=== PATIENT | male | born 1945 | race Caucasian/White ===

== ENCOUNTER 2023-09-08 10:33 | Inpatient (IN) | payer MEDICARE, OTHER ==
[~2023-09-08] VITALS: Ht 172.7 cm; Wt 106.1 kg
[2023-09-08 11:18] LABS: BASOPHILS % (AUTO) 0.4 % (0.0-2.0); EOSINOPHILS % (AUTO) 0.3 % (0.0-7.0); HEMOGLOBIN 13.3 g/dL (12.5-16.3); LYMPHOCYTES # (AUTO) 0.8 K/uL (0.8-4.8); LYMPHOCYTES % (AUTO) 8.9 % (20.5-51.5); MEAN CORPUSCULAR HEMOGLOBIN 31.6 uug (23.8-33.4); MEAN CORPUSCULAR HGB CONC 35 g/dL (32.5-36.3); MEAN CORPUSCULAR VOLUME 90.2 fL (73.0-96.2); MONOCYTES # (AUTO) 0.3 K/uL (0.1-1.30); MONOCYTES % (AUTO) 3.6 % (0.0-11.0); NEUTROPHILS # (AUTO) 7.6 K/uL (1.8-8.9); NEUTROPHILS % (AUTO) 86.8 % (38.5-71.5); PLATELET COUNT (AUTO) 81 K/uL (152-348); RED BLOOD CELL COUNT(AUTO) 4.21 MIL/uL (4.06-5.63); WHITE BLOOD COUNT (AUTO) 8.8 K/uL (3.6-10.2)
[2023-09-08 11:26] LABS: CALCIUM 8.3 mg/dL (8.5-10.1); CARBON DIOXIDE 28 mmol/L (21-32); CHLORIDE 98 mmol/L (98-107); CREATININE 1.1 mg/dL (0.6-1.3); GLUCOSE 232 mg/dL (74-106); POTASSIUM 3.8 mmol/L (3.5-5.1); SODIUM SERUM 133 mmol/L (136-145); UREA NITROGEN, BLOOD 33 mg/dL (7-18)
[2023-09-08 11:32] LABS: *BILIRUBIN,URIN NEGATIVE (NEGATIVE); *BLOOD, URINE NEGATIVE (NEGATIVE); *CLARITY,URINE CLEAR (CLEAR); *COLOR,URINE YELLOW (YELLOW); *KETONES,URINE NEGATIVE (NEGATIVE); *PROTEIN,URINE NEGATIVE (NEGATIVE); LEUKOCYTE ESTERASE ,URINE NEGATIVE (NEGATIVE); NITRITE, URINE NEGATIVE (NEGATIVE); UGLUCOSE TRACE (NEGATIVE)
[2023-09-08] MEDS ORDERED: OMEP20TA5 PO (11:52)
[2023-09-08] MEDS ORDERED: DONE10TA44 PO (11:52)
[2023-09-08] MEDS ORDERED: CARB-35 PO (11:52)
[2023-09-08] MEDS ORDERED: FLEC100T2 PO (11:52)
[2023-09-08] MEDS ORDERED: ACET325T53 PO (11:52)
[2023-09-08] MEDS ORDERED: FINA5TAB3 PO (11:52)
[2023-09-08] MEDS ORDERED: ASCO500C18 PO (11:52)
[2023-09-08] MEDS ORDERED: ATOR20TA PO (11:52)
[2023-09-08] MEDS ORDERED: HYDR-3980 PO (11:52)
[2023-09-08] MEDS ORDERED: NA P133E RC (11:52)
[2023-09-08] MEDS ORDERED: MAGN400O6 PO (11:52)
[2023-09-08] MEDS ORDERED: BISA10SU61 RC (11:52)
[2023-09-08] MEDS ORDERED: ALBU0.63 NEB (11:52)
[2023-09-08] MEDS ORDERED: CITA20TA16 PO (11:52)
[2023-09-08] MEDS ORDERED: FERR-56 PO (11:52)
[2023-09-08] MEDS ORDERED: METO-356 PO (11:52)
[2023-09-08] MEDS ORDERED: HYDR12.55 PO (11:52)
[2023-09-08] MEDS ORDERED: MEMA10TA PO (11:52)
[2023-09-08] MEDS ORDERED: CHOL500062 PO (11:52)
[2023-09-08 11:57] LABS: ALANINE AMINOTRANSFERASE 17 U/L (16-63); ALBUMIN 3.1 g/dL (3.4-5.0); ALKALINE PHOSPHATASE 79 U/L (50-136); ASPARTATE AMINOTRANSFERASE 7 U/L (15-37); BILIRUBIN,DIRECT 0.2 mg/dL (0.0-0.2); BILIRUBIN,TOTAL 0.9 mg/dL (0.2-1.0); TOTAL PROTEIN, SERUM 6.4 g/dL (6.4-8.2)
[2023-09-08 12:11] LABS: SQUAMOUS EPITHELIAL CELL,UR FEW /HPF (NONE SEEN); WBC,URINE NONE SEEN /HPF (0-3)
[2023-09-08] MEDS: CYANOCOBALAMIN 1000 MCG/ML VIAL IM ONE (12:30)
[2023-09-08] MEDS ORDERED: CYANOCOBALAMIN 1000 MCG/ML VIAL ONE (12:30)
[2023-09-08] MEDS ORDERED: MAG HYDROX/AL HYDROX/SIMETH 30 ML LIQUID UDC PO PRN (16:30)
[2023-09-08] MEDS ORDERED: MAGNESIUM HYDROXIDE 30 ML LIQUID UDC PO PRN ×2 (16:30→18:00)
[2023-09-08] MEDS ORDERED: FLEET ENEMA 133 ML BOTTLE RC PRN (18:00)
[2023-09-08] MEDS ORDERED: ACETAMINOPHEN 325 MG TABLET-SA PATIENTS-PAIN ONLY PO PRN (18:00)
[2023-09-08] MEDS ORDERED: BISACODYL 10 MG SUPP.RECT RC PRN (18:00)
[2023-09-08 18:54] VITALS: BP 156/77; TEMP 97.4; O2SAT 97
[2023-09-08 20:02] VITALS: BP 140/78; TEMP 98.1; O2SAT 96
[2023-09-08] MEDS: LORAZEPAM 1 MG TABLET PO PRN (20:52)
[2023-09-08] MEDS: ATORVASTATIN 20 MG TABLET PO SCH (20:53)
[2023-09-09] MEDS: ZOLPIDEM 5 MG TABLET PO PRN (02:06)
[2023-09-09] MEDS: PANTOPRAZOLE SODIUM 40 MG TABLET.DR PO SCH (06:54)
[2023-09-09 07:30] VITALS: BP 126/75; TEMP 98.2; O2SAT 98
[2023-09-09 08:12] LABS: THYROID STIMULATING HORMONE 1.098 mIU/mL (0.358-3.740)
[2023-09-09] MEDS ORDERED: HYDROCODONE/APAP 10-325 MG TABLET PO SCH ×2 (09:00)
[2023-09-09] MEDS: FERROUS SULFATE 325 MG TABEC PO SCH (09:46)
[2023-09-09] MEDS: MEMANTINE HCL 5 MG TABLET PO SCH (09:46)
[2023-09-09] MEDS: ASCORBIC ACID 500 MG TABLET PO SCH (09:46)
[2023-09-09] MEDS: DONEPEZIL 10 MG TABLET PO SCH (09:46)
[2023-09-09] MEDS: FINASTERIDE 5 MG TABLET PO SCH (09:47)
[2023-09-09] MEDS: CARBIDOPA/LEVODOPA 25-100MG TAB.RAPDIS PO SCH (09:47)
[2023-09-09] MEDS: FLECAINIDE ACETATE 100 MG TABLET PO SCH (09:48)
[2023-09-09] MEDS: HYDROCHLOROTHIAZIDE 12.5 MG CAPSULE PO SCH (09:48)
[2023-09-09] MEDS: METOPROLOL SUCCINATE XL 25 MG TAB.SR.24H PO SCH (09:49)
[2023-09-09] MEDS: CHOLECALCIFEROL 1,000 UNIT TABLET PO SCH (10:20)
[2023-09-09] MEDS ORDERED: HYDROCODONE/APAP 10-325 MG TABLET PO PRN (10:45)
[2023-09-09 16:02] VITALS: BP 110/52; TEMP 98; O2SAT 94
[2023-09-09] MEDS: ACETAMINOPHEN 325 MG TABLET PO PRN (20:33)
[2023-09-09 20:57] VITALS: BP 112/54; TEMP 98.1; O2SAT 96
[2023-09-10] VITALS (9 sets, daily range): BP systolic 114–121; BP diastolic 58–69; TEMP 98–100; O2SAT 95–99
[2023-09-10] MEDS: VENLAFAXINE XR 37.5 MG CAP.SR.24H PO SCH (09:59)
[2023-09-10] MEDS ORDERED: REMEDY ESSENTIAL ZINC PASTE 113 GM TOP SCH (13:45)
[2023-09-10 17:20] LABS: BASOPHILS % (AUTO) 0.4 % (0.0-2.0); EOSINOPHILS # (AUTO) 0.1 K/uL (0.0-0.7); EOSINOPHILS % (AUTO) 1.2 % (0.0-7.0); HEMATOCRIT 39.9 % (36.7-47.1); HEMOGLOBIN 13.9 g/dL (12.5-16.3); MEAN CORPUSCULAR HEMOGLOBIN 31.3 uug (23.8-33.4); MEAN CORPUSCULAR HGB CONC 35 g/dL (32.5-36.3); MEAN CORPUSCULAR VOLUME 90.2 fL (73.0-96.2); MONOCYTES # (AUTO) 0.4 K/uL (0.1-1.30); MONOCYTES % (AUTO) 4.7 % (0.0-11.0); NEUTROPHILS # (AUTO) 6.2 K/uL (1.8-8.9); NEUTROPHILS % (AUTO) 80.7 % (38.5-71.5); PLATELET COUNT (AUTO) 73 K/uL (152-348); RED BLOOD CELL COUNT(AUTO) 4.43 MIL/uL (4.06-5.63); RED CELL DISTRIBUTION WIDTH 14.3 % (12.1-16.2); WHITE BLOOD COUNT (AUTO) 7.7 K/uL (3.6-10.2)
[2023-09-10 17:23] LABS: CALCIUM 8.4 mg/dL (8.5-10.1); CARBON DIOXIDE 26 mmol/L (21-32); CHLORIDE 100 mmol/L (98-107); CREATININE 1.1 mg/dL (0.6-1.3); GLUCOSE 139 mg/dL (74-106); POTASSIUM 3.6 mmol/L (3.5-5.1); SODIUM SERUM 135 mmol/L (136-145); UREA NITROGEN, BLOOD 31 mg/dL (7-18)
[2023-09-10] MEDS: CARBIDOPA/LEVODOPA 25-100MG TABLET PO SCH (17:27)
[2023-09-10] MEDS: QUETIAPINE FUMARATE 25 MG TABLET PO SCH (21:59)
[2023-09-10] MEDS ORDERED: ALBUTEROL SULFATE 2.5 MG/3 ML NEBU ONE (22:36)
[2023-09-10] MEDS: ALBUTEROL SULFATE 2.5 MG/3 ML NEBU NEB PRN (23:09)
[2023-09-11 04:50] LABS: *BILIRUBIN,URIN NEGATIVE (NEGATIVE); *BLOOD, URINE NEGATIVE (NEGATIVE); *CLARITY,URINE CLEAR (CLEAR); *COLOR,URINE YELLOW (YELLOW); *KETONES,URINE NEGATIVE (NEGATIVE); *PROTEIN,URINE NEGATIVE (NEGATIVE); LEUKOCYTE ESTERASE ,URINE NEGATIVE (NEGATIVE); NITRITE, URINE NEGATIVE (NEGATIVE); UGLUCOSE NEGATIVE (NEGATIVE)
[2023-09-11 08:07] VITALS: BP 135/76; TEMP 98.7; O2SAT 96
[2023-09-11] MEDS: FUROSEMIDE 20 MG TABLET PO SCH (09:26)
[2023-09-11 16:48] VITALS: BP 108/69; TEMP 97.9; O2SAT 96
[2023-09-11 20:00] VITALS: BP 126/64; TEMP 98.1; O2SAT 96
[2023-09-12 07:37] VITALS: BP 126/67; TEMP 98.1; O2SAT 97
[2023-09-12 16:07] VITALS: BP 112/73; TEMP 98.2; O2SAT 97
[2023-09-12 20:00] VITALS: BP 124/68; TEMP 98.3; O2SAT 96
[2023-09-13 01:53] VITALS: O2SAT 97
[2023-09-13 02:05] VITALS: O2SAT 99
[2023-09-13 07:46] VITALS: BP 141/76; TEMP 98.2; O2SAT 98
[2023-09-13 15:29] VITALS: BP 112/73; TEMP 98.2; O2SAT 98
[2023-09-13 20:30] VITALS: BP 113/64; TEMP 98.2; O2SAT 94
[2023-09-14 07:55] VITALS: BP 116/70; TEMP 98; O2SAT 96
[2023-09-14 09:19] VITALS: BP 116/70
== END 2023-09-14 11:00 | DRG 885 ==
LOC: ER 10:33 → GPS 15:14
PROVIDERS: ADMIT Psychiatry & Neurology Psychiatry; ATTEND Internal Medicine
DX: F29 Unspecified psychosis not due to a substance or known physiological condition (principal); E43 Unspecified severe protein-calorie malnutrition; F03.92 Unspecified dementia, unspecified severity, with psychotic disturbance; F03.918 Unspecified dementia, unspecified severity, with other behavioral disturbance; F39 Unspecified mood [affective] disorder; E66.01 Morbid (severe) obesity due to excess calories; Z68.35 Body mass index [BMI] 35.0-35.9, adult; E11.9 Type 2 diabetes mellitus without complications; E88.09 Other disorders of plasma-protein metabolism, not elsewhere classified; I10 Essential (primary) hypertension; I48.0 Paroxysmal atrial fibrillation; Z79.899 Other long term (current) drug therapy; Z91.81 History of falling; M19.90 Unspecified osteoarthritis, unspecified site; M62.81 Muscle weakness (generalized); Z88.8 Allergy status to other drugs, medicaments and biological substances
CPT/HCPCS: 36415; 71045; 83735; 84443; 85025; 86592; 93005; 93307; 94640; 94664; A4606; A4663; J3420; J8499